=== PATIENT | male | born 1995 | race African-American/Black ===

== ENCOUNTER 2017-10-06 12:58 | Emergency (ER) | payer MEDICAID ==
[~2017-10-06] VITALS: Ht 185.4 cm; Wt 70.0 kg
[~2017-10-06 12:58] MED LIST: NAPR500 PO; Z.0.NO CURRENT MEDS
[2017-10-06 13:01] VITALS: BP 130/80; PULSE 62; RESP 18; TEMP 98.6; O2SAT 99
== END 2017-10-06 14:42 | disposition left against medical advice (07) ==
LOC: NETRI 12:58
DX: K08.89 Other specified disorders of teeth and supporting structures (principal); Z72.0 Tobacco use
CPT/HCPCS: 99281

== ENCOUNTER 2017-12-11 23:19 | Emergency (ER) | payer MEDICAID ==
[~2017-12-11] VITALS: Ht 185.4 cm; Wt 75.0 kg
[2017-12-11 23:21] VITALS: BP 153/85; TEMP 98.5; O2SAT 99
--- NOTE | 2017-12-11 23:55 | PD ---
HPI Chief Complaint: Abdominal Pain Time Seen by Provider: 23:48 Travel History International Travel<30 days: No Contact w/Intl Traveler<30days: No Traveled to known affect area: No History of Present Illness HPI Patient presents complaining of suprapubic abdominal pain. Onset was last night. He rates the pain 10/10. It is associated with dysuria. No modifying factors. PFSH Past Medical History ADHD: Yes Depression: Yes Diminished Hearing: No Immunizations Current: Yes Tetanus Vaccination: Unknown Past Surgical History Surgical History: No Previous Surgery Social History Alcohol Use: No (occasionally) Tobacco Use: Yes (black and milds) Substance Use: Yes ("weed") Allergies-Medications (Allergen,Severity, Reaction): Coded Allergies: No Known Allergies (Verified Adverse Reaction, Unknown, 12/11/17) Reported Meds & Prescriptions Reported Meds & Active Scripts Active Naprosyn (Naproxen) 500 Mg Tab 500 Mg PO Q12HR PRN Reported No Current Meds (Miscellaneous Medication) Misc Review of Systems Except as stated in HPI: all other systems reviewed are Neg General / Constitutional: No: Fever, Chills Gastrointestinal: Positive: Abdominal Pain, No: Nausea, Vomiting, Diarrhea, Constipation Genitourinary: Positive: Dysuria, No: Discharge Physical Exam Narrative GENERAL: Awake and alert and in no acute distress. SKIN: Warm and dry. HEAD: Normocephalic/atraumatic. EYES: Pupils are equal. Extraocular movements are intact. Totally NECK: Normal range of motion. Bili RESPIRATORY: Nonlabored respirations. ABDOMEN: Soft and nontender. Bowel sounds are present. No distention. Really MUSCULOSKELETAL: Atraumatic. NEUROLOGICAL: Nonfocal. PSYCHIATRIC: Appropriate mood and affect. Data Data Last Documented VS Vital Signs Date Time Temp Pulse Resp B/P (MAP) Pulse Ox O2 Delivery O2 Flow Rate FiO2 12/11/17 23:21 98.5 112 18 153/85 (107) 99 Orders Orders Gc And Chlamydia Pcr (12/11/17 23:51) Azithromycin (Zithromax) (12/12/17 00:00) Ceftriaxone Inj (Rocephin Inj) (12/12/17 00:00) Sodium Chloride 0.9% Flush (Ns Flush) (12/12/17 00:00) Lidocaine 1% Inj (50 Ml) (Xylocaine 1% I (2/1/18 00:00) MDM Medical Decision Making Medical Screen Exam Complete: Yes Emergency Medical Condition: Yes Differential Diagnosis Final differential diagnosis of urinary symptoms includes but is not limited to UTI, kidney stone, pyelonephritis, bacterial vaginosis, yeast infection, urinary retention Narrative Course This patient presents complaining of suprapubic pain associated with dysuria. He has nonspecific urethritis. He will be treated here with Rocephin and Zithromax. He will be discharged. Diagnosis Primary Impression: Urethritis Patient Instructions: General Instructions, Nonspecific Urethritis in Men (DC) Disposition: 01 DISCHARGE HOME Condition: Stable Rosie Breaux MD Dec 11, 2017 23:55
[2017-12-12] MEDS ORDERED: cefTRIAXone 250 MG VIAL IM ONE
[2017-12-12] MEDS ORDERED: LIDOCAINE HCL 1% 50 ML VIAL XX ONE
[2017-12-12] MEDS ORDERED: SODIUM CHLORIDE 0.9% FLUSH 10 ML FLUSH IVF PRN
[2017-12-12] MEDS ORDERED: AZITHROMYCIN 250 MG TAB PO ONE
== END 2017-12-12 00:44 | disposition home or self-care (01) ==
LOC: NEPD 23:19
DX: N34.2 Other urethritis (principal); Z72.0 Tobacco use
CPT/HCPCS: 87491; 87591; 96372; 99284; J0696

== ENCOUNTER 2018-02-04 20:28 | Inpatient (IN) | payer MEDICARE, MEDICAID ==
[2018-02-04 20:28] VITALS: O2SAT 95
[~2018-02-04 20:28] MED LIST changes: +DEXAMETHASONE SOD PHOS 4 MG/ML VIAL IV ONE; +GLYCOPYRROLATE 1 MG/5 ML SYRINGE IV PUSH ONE; +LIDOCAINE HCL 1% PF 5 ML SYRINGE OTHER ONE; +NEOSTIGMINE 5 MG/5 ML SYRINGE IV PUSH ONE; +ONDANSETRON HCL 4 MG/2 ML VIAL IV ONE; +PHENYLEPH/NS 1000 MCG/10 ML SYR IV ONE; +PROPOFOL 200 MG/20 ML AMP IV ONE; +ROCURONIUM INJ 50 MG/5 ML SYRINGE IV PUSH ONE; +SUCCINYLCHOLINE CHLORIDE 100 MG/5 ML SYRINGE IV PUSH ONE
[2018-02-04] MEDS ORDERED: HEPARIN SODIUM - SQ 10,000 UNITS/ML VIAL ONE (20:43)
[2018-02-04] MEDS ORDERED: ceFAZolin INJ 1,000 MG VIAL ONE (20:43)
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
[2018-02-04] MEDS ORDERED: metroNIDAZOLE 500 MG INJ 100 ML IV ONE (20:50)
[2018-02-04 20:55] LABS: BASOPHIL # 0.2 TH/MM3 (0-0.2); BASOPHIL % 1.4 % (0.0-2.0); EOSINOPHIL % 0.2 % (0.0-4.0); HEMATOCRIT 45.2 % (39.0-51.0); LYMPH % 33.7 % (9.0-44.0); LYMPHOCYTE # 3.9 TH/MM3 (1.0-4.8); MEAN CELL VOLUME 84.3 FL (80.0-100.0); MEAN CORPUSCULAR HGB CONC 33.2 % (32.0-36.0); MONO % 3.9 % (0.0-8.0); MONOCYTE # 0.5 TH/MM3 (0-0.9); NEUT % 60.8 % (16.0-70.0); PLATELET COUNT 206 TH/MM3 (150-450); RED BLOOD COUNT 5.37 MIL/MM3 (4.50-5.90); RED CELL DISTRIBUTION WIDTH 13.9 % (11.6-17.2); WHITE BLOOD COUNT 11.5 TH/MM3 (4.0-11.0)
[2018-02-04 21:17] LABS: PROTHROMBIN TIME - PATIENT 10.6 SEC (9.8-11.6)
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
[2018-02-04] MEDS: SODIUM CHLOR 0.9% 1000 ML INJ 1,000 ML IV SCH (22:47)
[2018-02-04] MEDS ORDERED: DO NOT ADM ANY ANTICOAGULANT DRUGS PRN (22:56)
[2018-02-04] MEDS: PCA - TOTAL MG DILAUDID DELIVERED PER SHIFT OTHER SCH (23:00)
[2018-02-04] MEDS ORDERED: BISACODYL 10 MG SUPP RECTAL PRN (23:00)
[2018-02-04] MEDS ORDERED: NALOXONE HCL 0.4 MG/ML AMP IV PUSH PRN (23:00)
[2018-02-04] MEDS ORDERED: CHLORHEXIDINE GLUCONATE 2 % 1 PACK (2 CLOTHS) TOP PRN (23:00)
[2018-02-04] MEDS: FAMOTIDINE 20 MG TAB PO SCH (23:00)
[2018-02-04] MEDS ORDERED: MISCELLANEOUS NURSING INFORMATION XX SCH (23:00)
[2018-02-04] MEDS ORDERED: MIDAZOLAM HCL 2 MG/2 ML VIAL ONE ×2 (23:01→23:05)
[2018-02-04] MEDS ORDERED: MORPHINE SULFATE 4 MG/ML INJ ONE (23:06)
[2018-02-04] MEDS: CHLORHEXIDINE GLUCONATE 2 % 1 PACK (2 CLOTHS) TOP SCH (23:17)
[2018-02-04] MEDS ORDERED: *morphine SULFATE 8 MG/ML PERIprocedure ONLY ONE (23:32)
[2018-02-05] VITALS (9 sets, daily range): BP systolic 125–154; BP diastolic 67–86; PULSE 75–120; RESP 9–18; TEMP 98.4–100.3; O2SAT 94–100
[2018-02-05] MEDS: HYDROmorphone HCL PCA 6 MG/30 ML IV SCH ×2 (00:17→08:54)
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
[2018-02-05] MEDS ORDERED: RESP: ALBUTEROL 2.5 MG/3 ML NEB (PRN) NEB (05:15)
[2018-02-05 05:17] LABS: AUTOMATED NEUTROPHIL # 10.4 TH/MM3 (1.8-7.7); BASOPHIL % 0.1 % (0.0-2.0); HEMATOCRIT 44.6 % (39.0-51.0); HEMOGLOBIN 14.6 GM/DL (13.0-17.0); LYMPH % 4.4 % (9.0-44.0); LYMPHOCYTE # 0.5 TH/MM3 (1.0-4.8); MEAN CELL VOLUME 85.1 FL (80.0-100.0); MEAN CORPUSCULAR HEMOGLOBIN 27.8 PG (27.0-34.0); MEAN CORPUSCULAR HGB CONC 32.7 % (32.0-36.0); MEAN PLATELET VOLUME 8.4 FL (7.0-11.0); MONO % 5.5 % (0.0-8.0); MONOCYTE # 0.6 TH/MM3 (0-0.9); PLATELET COUNT 149 TH/MM3 (150-450); RED BLOOD COUNT 5.24 MIL/MM3 (4.50-5.90); RED CELL DISTRIBUTION WIDTH 13.9 % (11.6-17.2); WHITE BLOOD COUNT 11.6 TH/MM3 (4.0-11.0)
[2018-02-05 05:44] LABS: BICARBONATE 24.5 MEQ/L (21.0-32.0); CREATININE 0.85 MG/DL (0.60-1.30)
[2018-02-05] MEDS: RESP: ALBUTEROL 2.5 MG/IPRATROPIUM 0.5 MG NEB (SCH) NEB ×4 (05:47→21:34)
[2018-02-05] MEDS: AMPICILLIN-SULBACTAM INJ 3 GM in SODIUM CHLORIDE 0.9% INJ 100 ML IV SCH ×3 (05:58→16:44)
[2018-02-05] MEDS: PCA - TOTAL MG DILAUDID DELIVERED PER SHIFT OTHER SCH ×3 (06:00→22:39)
[2018-02-05] MEDS: BENZOCAINE-MENTHOL (SUGAR FREE) 15 MG-3.6 MG LOZENGE BUCCAL PRN (09:06)
[2018-02-05] MEDS: SODIUM CHLOR 0.9% 1000 ML INJ 1,000 ML IV SCH ×2 (10:00→16:47)
[2018-02-05] MEDS: DOCUSATE SODIUM 50 MG/SENNA 8.6 MG TAB PO SCH ×2 (12:21→20:37)
[2018-02-05] MEDS: FAMOTIDINE 20 MG TAB PO SCH ×2 (12:21→20:37)
[2018-02-05] MEDS: ENOXAPARIN SODIUM 30 MG/0.3 ML SYRINGE SQ SCH ×2 (12:22→22:39)
[2018-02-05] MEDS: KETOROLAC TROMETHAMINE 30 MG/ML (IVP) VIAL IV PUSH SCH ×2 (13:45→20:37)
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
[2018-02-05] MEDS: CHLORHEXIDINE GLUCONATE 2 % 1 PACK (2 CLOTHS) TOP SCH (19:20)
[2018-02-06] MEDS: KETOROLAC TROMETHAMINE 30 MG/ML (IVP) VIAL IV PUSH SCH ×3 (02:40→12:55)
[2018-02-06] MEDS: RESP: ALBUTEROL 2.5 MG/IPRATROPIUM 0.5 MG NEB (SCH) NEB ×4 (03:20→20:30)
[2018-02-06 03:47] LABS: AUTOMATED NEUTROPHIL # 5.4 TH/MM3 (1.8-7.7); BASOPHIL % 0.3 % (0.0-2.0); EOSINOPHIL % 0.3 % (0.0-4.0); HEMATOCRIT 36.3 % (39.0-51.0); HEMOGLOBIN 12.1 GM/DL (13.0-17.0); LYMPH % 23.3 % (9.0-44.0); LYMPHOCYTE # 1.8 TH/MM3 (1.0-4.8); MEAN CELL VOLUME 84.9 FL (80.0-100.0); MEAN CORPUSCULAR HEMOGLOBIN 28.3 PG (27.0-34.0); MEAN CORPUSCULAR HGB CONC 33.3 % (32.0-36.0); MEAN PLATELET VOLUME 7.9 FL (7.0-11.0); MONO % 5.7 % (0.0-8.0); MONOCYTE # 0.4 TH/MM3 (0-0.9); NEUT % 70.4 % (16.0-70.0); PLATELET COUNT 133 TH/MM3 (150-450); RED BLOOD COUNT 4.28 MIL/MM3 (4.50-5.90); RED CELL DISTRIBUTION WIDTH 13.9 % (11.6-17.2); WHITE BLOOD COUNT 7.7 TH/MM3 (4.0-11.0)
[2018-02-06 04:13] LABS: ALKALINE PHOSPHATASE 42 U/L (45-117); ALT (GPT) 22 U/L (12-78); TOTAL BILIRUBIN ADULT 0.4 MG/DL (0.2-1.0); TOTAL PROTEIN 5.5 GM/DL (6.4-8.2)
[2018-02-06 04:46] LABS: ALBUMIN 2.7 GM/DL (3.4-5.0); AST (GOT) 68 U/L (15-37); BICARBONATE 25.4 MEQ/L (21.0-32.0); BLOOD UREA NITROGEN 9 MG/DL (7-18); CALCIUM 8.1 MG/DL (8.5-10.1); CHLORIDE 108 MEQ/L (98-107); CREATININE 0.82 MG/DL (0.60-1.30); GLOMERULAR FILTRATION RATE 98 ML/MIN (>89); GLUCOSE,RANDOM 87 MG/DL (74-106); SODIUM (NA) 139 MEQ/L (136-145)
[2018-02-06] MEDS: SODIUM CHLOR 0.9% 1000 ML INJ 1,000 ML IV SCH (04:47)
[2018-02-06 04:49] VITALS: BP 107/56; PULSE 85; RESP 18; TEMP 98.4; O2SAT 100
[2018-02-06] MEDS: PCA - TOTAL MG DILAUDID DELIVERED PER SHIFT OTHER SCH (04:55)
[2018-02-06] MEDS: HYDROmorphone HCL PCA 6 MG/30 ML IV SCH (04:57)
[2018-02-06 08:00] VITALS: BP 129/70; PULSE 88; RESP 19; TEMP 98; O2SAT 100
[2018-02-06] MEDS: FAMOTIDINE 20 MG TAB PO SCH ×3 (09:00→20:24)
[2018-02-06] MEDS: DOCUSATE SODIUM 50 MG/SENNA 8.6 MG TAB PO SCH ×2 (09:30→20:53)
[2018-02-06] MEDS: BENZOCAINE-MENTHOL (SUGAR FREE) 15 MG-3.6 MG LOZENGE BUCCAL PRN (09:33)
[2018-02-06] MEDS: ENOXAPARIN SODIUM 30 MG/0.3 ML SYRINGE SQ SCH ×2 (10:17→22:11)
[2018-02-06] MEDS ORDERED: HYDROmorphone HCL PF 2 MG/ML VIAL IV PUSH PRN (11:45)
[2018-02-06] MEDS: MAGNESIUM HYDROXIDE SUSP 30 ML CUP PO PRN (12:52)
[2018-02-06] MEDS: SENNOSIDES 8.6 MG TAB PO PRN ×2 (12:52→20:53)
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
[2018-02-06 16:00] VITALS: BP 120/68; PULSE 73; RESP 18; TEMP 98.9; O2SAT 100
[2018-02-06 18:25] VITALS: BP 126/65; PULSE 92; RESP 16; TEMP 98.8; O2SAT 99
[2018-02-06] MEDS: CHLORHEXIDINE GLUCONATE 2 % 1 PACK (2 CLOTHS) TOP SCH (22:30)
[2018-02-07] VITALS: BP 119/68; PULSE 96; RESP 20; TEMP 99; O2SAT 100
[2018-02-07 04:27] LABS: HEMATOCRIT 29.8 % (39.0-51.0)
[2018-02-07 08:00] VITALS: BP 147/66; PULSE 97; RESP 14; TEMP 98.3; O2SAT 100
[2018-02-07] MEDS: MAGNESIUM HYDROXIDE SUSP 30 ML CUP PO PRN (08:39)
[2018-02-07] MEDS: SENNOSIDES 8.6 MG TAB PO PRN (08:39)
[2018-02-07] MEDS: DOCUSATE SODIUM 50 MG/SENNA 8.6 MG TAB PO SCH ×2 (08:39→20:05)
[2018-02-07] MEDS: BENZOCAINE-MENTHOL (SUGAR FREE) 15 MG-3.6 MG LOZENGE BUCCAL PRN (08:40)
[2018-02-07] MEDS: FAMOTIDINE 20 MG TAB PO SCH ×2 (08:40→20:04)
[2018-02-07] MEDS: ENOXAPARIN SODIUM 30 MG/0.3 ML SYRINGE SQ SCH ×2 (08:41→20:05)
[2018-02-07 12:00] VITALS: BP 121/65; PULSE 100; RESP 15; TEMP 98; O2SAT 100
[2018-02-07 16:00] VITALS: BP 139/64; PULSE 90; RESP 15; TEMP 98.6; O2SAT 100
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
[2018-02-07] MEDS: LACTULOSE SYRUP 20 GM/30 ML CUP PO PRN (16:08)
[2018-02-07 20:00] VITALS: BP 137/73; PULSE 89; RESP 18; TEMP 98.9; O2SAT 100
[2018-02-07] MEDS: CHLORHEXIDINE GLUCONATE 2 % 1 PACK (2 CLOTHS) TOP SCH (23:06)
[2018-02-08] VITALS: BP 129/78; PULSE 103; RESP 18; TEMP 99.1; O2SAT 100
[2018-02-08 04:14] LABS: HEMATOCRIT 29.4 % (39.0-51.0); HEMOGLOBIN 9.8 GM/DL (13.0-17.0)
[2018-02-08 08:00] VITALS: BP 145/90; PULSE 119; RESP 20; TEMP 97.4; O2SAT 97
[2018-02-08] MEDS: DOCUSATE SODIUM 50 MG/SENNA 8.6 MG TAB PO SCH ×2 (08:07→20:06)
[2018-02-08] MEDS: FAMOTIDINE 20 MG TAB PO SCH ×2 (08:07→20:06)
[2018-02-08] MEDS: ONDANSETRON HCL 4 MG/2 ML VIAL IV PUSH PRN ×3 (09:01→23:38)
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
[2018-02-08] MEDS: ENOXAPARIN SODIUM 30 MG/0.3 ML SYRINGE SQ SCH ×2 (11:00→20:06)
[2018-02-08 12:00] VITALS: BP 142/55; PULSE 104; RESP 18; TEMP 97.5; O2SAT 100
[2018-02-08 13:06] LABS: AUTOMATED NEUTROPHIL # 2.6 TH/MM3 (1.8-7.7); BASOPHIL % 0.4 % (0.0-2.0); EOSINOPHIL # 0.1 TH/MM3 (0-0.4); EOSINOPHIL % 1.3 % (0.0-4.0); HEMOGLOBIN 9.8 GM/DL (13.0-17.0); LYMPH % 25.9 % (9.0-44.0); MEAN CORPUSCULAR HGB CONC 34.1 % (32.0-36.0); MEAN PLATELET VOLUME 8.6 FL (7.0-11.0); MONO % 8.3 % (0.0-8.0); MONOCYTE # 0.3 TH/MM3 (0-0.9); NEUT % 64.1 % (16.0-70.0); PLATELET COUNT 151 TH/MM3 (150-450); RED BLOOD COUNT 3.39 MIL/MM3 (4.50-5.90); RED CELL DISTRIBUTION WIDTH 13.2 % (11.6-17.2)
[2018-02-08 13:07] LABS: HEMATOCRIT 29.4 % (39.0-51.0)
--- NOTE | 2018-02-08 13:09 | RADRPT ---
EXAM DATE/TIME: 02/08/2018 12:44 [place] COMPARISON: No previous studies available for comparison. INDICATIONS : Shortness of breath. MEDICAL HISTORY : None. SURGICAL HISTORY : None. ENCOUNTER: Subsequent ACUITY: 3 days PAIN SCORE: 0/10 LOCATION: Bilateral chest FINDINGS: A single view of the chest demonstrates the lungs to be symmetrically aerated without evidence of mas s, infiltrate or effusion. The cardiomediastinal contours are unremarkable. Osseous structures are intact. CONCLUSION: No acute disease. Сергей Calderon MD on February 08, 2018 at 13:06 Board Certified Radiologist. This report was verified electronically.
[2018-02-08 16:00] VITALS: BP 147/76; PULSE 108; RESP 18; TEMP 98.3; O2SAT 100
[2018-02-08 20:00] VITALS: BP 143/90; PULSE 116; RESP 21; TEMP 99.6; O2SAT 100
[2018-02-08] MEDS: CHLORHEXIDINE GLUCONATE 2 % 1 PACK (2 CLOTHS) TOP SCH (20:05)
[2018-02-09] VITALS: BP 154/90; PULSE 117; RESP 20; TEMP 98.8; O2SAT 100
[2018-02-09 04:00] VITALS: BP 134/72; PULSE 107; RESP 21; TEMP 98.4; O2SAT 97
[2018-02-09 08:00] VITALS: BP 147/85; PULSE 102; RESP 18; TEMP 98.2; O2SAT 99
[2018-02-09] MEDS: LACTULOSE SYRUP 20 GM/30 ML CUP PO PRN (08:57)
[2018-02-09] MEDS: ONDANSETRON HCL 4 MG/2 ML VIAL IV PUSH PRN (08:58)
[2018-02-09] MEDS: FAMOTIDINE 20 MG TAB PO SCH ×2 (08:59→19:35)
[2018-02-09] MEDS: DOCUSATE SODIUM 50 MG/SENNA 8.6 MG TAB PO SCH ×2 (09:00→19:34)
[2018-02-09] MEDS: ENOXAPARIN SODIUM 30 MG/0.3 ML SYRINGE SQ SCH (09:01)
[2018-02-09] MEDS ORDERED: PERC5TAB12 PO (11:34)
[2018-02-09] MEDS ORDERED: PERI PO (11:34)
[2018-02-09 12:00] VITALS: BP 154/91; PULSE 112; RESP 20; TEMP 98.3; O2SAT 100
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
[2018-02-09 14:28] VITALS: RESP 17
== END 2018-02-09 19:54 | disposition home or self-care (01) | DRG 329 ==
LOC: EDBD → HOR 20:28 → MERGE 20:42 → EEVIPCON 20:42 → NEDA 20:42 → HPAC 21:02 → N03A 23:50 → N06B 02-05 14:22
PROVIDERS: ADMIT Surgery Trauma Surgery; ATTEND Surgery Trauma Surgery
PROC: 0DQN0ZZ Repair Sigmoid Colon, Open Approach (ICD-10-PCS; 2018-02-04)
PROC: 0DBA0ZZ Excision of Jejunum, Open Approach (ICD-10-PCS; principal; 2018-02-04 20:45)
DX: S36.438A Laceration of other part of small intestine, initial encounter (principal); S31.634A Puncture wound without foreign body of abdominal wall, left lower quadrant with penetration into peritoneal cavity, initial encounter; S36.533A Laceration of sigmoid colon, initial encounter; S36.538A Laceration of other part of colon, initial encounter; F17.210 Nicotine dependence, cigarettes, uncomplicated; W34.00XA Accidental discharge from unspecified firearms or gun, initial encounter
CPT/HCPCS: 71045; 72170; 80048; 80053; 82805; 85014; 85018; 85025; 85610; 85730; 86850; 86900; 86901; 87493; 88307; 94150; 94640; 94664; 96374; 99291; G0390; J0295; J0330; J0690; J1100; J1170; J1644; J1650; J1885; J2250; J2270; J2370; J2405; J2710; J3010; J7030